=== PATIENT | female | born 1990 | race Caucasian/White ===

== ENCOUNTER 2024-05-25 08:12 | Emergency (ER) | payer BC, SELFPAY ==
--- NOTE | 2024-05-25 08:22 | XR_ITS ---
Examination: Complete OB ultrasound, less than 14 weeks, transabdominal Date and time of exam: May 25, 2024 0835 hours INDICATIONS: Vaginal bleeding beginning one week ago Technique: Obstetrical ultrasound images less than 14 weeks performed via transabdominal imaging Findings: A normal shaped single intrauterine gestation is present in the uterus. CRL 2.7 cm corresponds to 9 weeks 3 days gestational age Posterior subchorionic hemorrhage 2.2 x 0.6 x 2.3 cm Posterior uterine fibroid degeneration 2.6 x 2.1 x 2.5 cm Ultrasonographic survey of visible and placental structures unremarkable. Amniotic fluid volume appears appropriate for this estimated gestational age. Right ovary 3.9 cm arterial flow 3.5 cm corpus luteum cyst, 15 mm follicular cyst Left ovary 3.6 cm arterial flow IMPRESSION: Viable intrauterine gestation 9 weeks 3 days Recommend short-term follow-up transvaginal pelvic sonography given the subchorionic hemorrhage.
--- NOTE | 2024-05-25 08:22 | PD.EDPREG ---
ED OB Contraction Preg RMI/HPI General Chief complaint: Abdominal Pain Stated complaint: SHARP LUQ ABD PAIN, LOWER ABD CRAMP, PREG 2MO Time Seen by Provider: 05/25/24 08:23 Source: patient Arrival date/time: 05/25/24 08:12 34-year-old female with no known medical history presents to the emergency room with a chief complaint of lower abdominal cramping, vaginal spotting and left upper quadrant abdominal pain x 3 days. Patient is currently 8 weeks . She is a (had twins). Patient denies any dysuria. Mode of arrival: ambulatory Limitations: no limitations Related Data Home Medications ?Medication ?Instructions ?Recorded ?Confirmed etonogestrel 0.12 mg-ethinyl 1 vag ring QMONTH 08/29/23 08/29/23 estradiol 0.015 mg/24 hr vaginal ring tretinoin 0.05 % topical cream 1 applic topical DAILY 08/29/23 08/29/23 Allergies Allergy/AdvReac Type Severity Reaction Status Date / Time tramadol Allergy Intermediate Rash Verified 05/25/24 08:16 Review of Systems Review of Systems Systems Reviewed: All systems reviewed, normal except as documented Constitutional Constitutional: Reports system reviewed and no additional complaints, except as documented, Denies fatigue, Denies fever(s), Denies headache(s) and Denies weakness Eyes Eyes: Reports system reviewed and no additional complaints, except as documented, Denies blurry vision and Denies change in vision ENT Ears, Nose, Mouth, and Throat: Reports system reviewed and no additional complaints, except as documented, Denies otalgia, Denies headache(s), Denies nasal congestion, Denies throat swelling and Denies vertigo Cardiovascular Cardiovascular: Reports system reviewed and no additional complaints, except as documented, Denies chest pain, Denies dyspnea and Denies dyspnea on exertion Respiratory Respiratory: Reports system reviewed and no additional complaints, except as documented, Denies chest congestion, Denies cough, Denies dyspnea, Denies dyspnea on exertion and Denies wheezing Gastrointestinal Gastrointestinal: Reports system reviewed and no additional complaints, except as documented, Denies abdominal pain, Reports cramping, Denies nausea and Denies vomiting Genitourinary Genitourinary: Reports system reviewed and no additional complaints, except as documented, Reports abnormal vaginal bleeding and Reports pelvic pain Musculoskeletal Musculoskeletal: Reports system reviewed and no additional complaints, except as documented and Denies back pain Integumentary/Breasts Skin/Breast: Reports system reviewed and no additional complaints, except as documented and Denies wounds Neurologic Neurologic: Reports system reviewed and no additional complaints, except as documented, Denies confusion, Denies headache(s), Denies lack of coordination, Denies vertigo and Denies weakness Psychiatric Psychiatric: Reports system reviewed and no additional complaints, except as documented, Denies anxiety, Denies confusion, Denies depression, Denies paranoia, Denies suicidal ideation and Denies tactile hallucinations Endocrine Endocrine: Reports system reviewed and no additional complaints, except as documented and Denies fatigue Hematologic/Lymphatic Hematologic/Lymphatic: Reports system reviewed and no additional complaints, except as documented and Denies lymphadenopathy Allergic/Immunologic Allergic/Immunologic: Reports system reviewed and no additional complaints, except as documented, Denies throat swelling, Denies urticaria and Denies wheezing Past Medical History Past Medical History NEUROLOGIC: Positive Neurological Disorders and Migraine; Negative Seizures CARDIAC: Positive Cardiac Disorders and Valvular Heart Disease ( LEAKY VALVE ); Negative Congestive Heart Failure RESPIRATORY: Negative Chronic Obstructive Pulmonary Disease (COPD) GASTROINTESTINAL: Positive Gastrointestinal Disorders (OCCASSIONAL RECTAL BLEEDING) and Hemorrhoids GENITOURINARY: Negative Genitourinary Disorders or Renal Disease REPRODUCTIVE: Positive Previous Pregnancies MUSCULOSKELETAL: Positive Musculoskeletal Disorders (TENDONITIS) ENDOCRINE: Positive Endocrine Disorders (HYPERHIDROSIS); Negative Diabetes Mellitus Type 1 or Diabetes Mellitus Type 2 OTHER HISTORY: Negative Blood Transfusions, Anesthesia Reactions or Cancer Social History SMOKING STATUS: Never smoker SUBSTANCE USE: does not use ED Exam General Limitations: Present no limitations General appearance: Present alert and in no apparent distress Head Head exam: Present atraumatic Eye Eye exam: Present normal appearance, PERRL and EOMI ENT ENT exam: Present normal exam, normal oropharynx and mucous membranes moist Neck Neck exam: Present normal inspection, full ROM and trachea midline Chest Chest inspection: Present normal inspection and symmetric chest wall rise Respiratory Respiratory exam: Present normal lung sounds bilaterally Cardiovascular Cardiovascular exam: Present regular rate, normal rhythm and normal heart sounds Abdominal Exam Abdominal exam: Present soft, tenderness and normal bowel sounds; Absent distention, guarding, rebound or rigidity Abdominal tenderness: Present suprapubic and mild Extremities Exam Extremities exam: Present normal inspection and full ROM Back Exam Back exam: Present normal inspection and full ROM Neurological Exam Neurological exam: Present alert, oriented X3 and CN II-XII intact Psychiatric Psychiatric exam: Present normal affect and normal mood Skin Skin exam: Present warm, dry, intact and normal color Course Quality Measures none Orders Category Date Time Status US OB <= 14 weeks fetus Stat Exams 05/25/24 08:22 Completed ABO/RH Type Stat Lab 05/25/24 09:05 Completed Beta HCG,Quantitative Stat Lab 05/25/24 09:05 Completed CBC Stat Lab 05/25/24 09:05 Completed CMP [Comprehensive Metabolic Panel] Stat Lab 05/25/24 09:05 Completed UA [Urinalysis] Stat Lab 05/25/24 10:05 Completed Vital Signs Vital signs: Vital Signs Temperature 98.3 F 05/25/24 08:39 Pulse Rate 100 05/25/24 08:39 Respiratory Rate 17 05/25/24 08:39 Blood Pressure 118/80 05/25/24 08:39 Pulse Oximetry (%) 98 05/25/24 08:39 Oxygen Delivery Method Room Air 05/25/24 08:39 O2 saturation 98% within normal limits OB/Uterine Contractions MDM Narrative MDM Narrative:: 34-year-old female with no known medical history presents to the emergency room with a chief complaint of lower abdominal cramping, vaginal spotting and left upper quadrant abdominal pain x 3 days. Patient is currently 8 weeks . She is a (had twins). Patient denies any dysuria. Patient is hemodynamically stable and in no apparent distress. Patient states she has left upper quadrant abdominal cramping and tenderness with palpation. Ultrasound OB shows a subchorionic bleed. There is a viable intrauterine gestation at 9 weeks and 3 days. hCG levels are [phone] Patient was educated that it is very important to follow-up with CONDITIONING MACHINE OPERATOR in the next 24 to 48 hours. Our radiologist recommends short-term follow-up for the subchorionic bleed. Urinalysis was negative CBC and CMP were negative for any acute findings. Patient was discharged and educated to follow-up with primary care provider in the next 24 to 48 hours and return to the emergency room for any evidence of worsening signs or symptoms Patient data External records reviewed:: [facility] previous records Clinical information provided by:: parent Social determinants that could affect healthcare access:: none Patient has the following chronic illnesses:: No chronic illness How is presenting disease/condition affected by chronic disease/condition?: no chronic disease Evaluation data The following diagnostics were reviewed and interpreted by me:: lab results and radiology exam(s) Lab and/or radiology exams considered but not ordered:: Labs and radiology exams considered and ordered Interpretation Summary: Ultrasound OB-Findings: A normal shaped single intrauterine gestation is present in the uterus. CRL 2.7 cm corresponds to 9 weeks 3 days gestational age Posterior subchorionic hemorrhage 2.2 x 0.6 x 2.3 cm Posterior uterine fibroid degeneration 2.6 x 2.1 x 2.5 cm Ultrasonographic survey of visible and placental structures unremarkable. Amniotic fluid volume appears appropriate for this estimated gestational age. Right ovary 3.9 cm arterial flow 3.5 cm corpus luteum cyst, 15 mm follicular cyst Left ovary 3.6 cm arterial flow IMPRESSION: Viable intrauterine gestation 9 weeks 3 days Recommend short-term follow-up transvaginal pelvic sonography given the subchorionic hemorrhage. Medications / Prescriptions Medications or Prescriptions considered but not ordered:: Medication given Medication administrations:: Medication given Consultations Consultation(s) initiated? (list below): No Diagnosis OB Contractions Differential Diagnosis: other (Spontaneous /vaginal bleed/threatened /subchorionic bleed) Most likely diagnosis given after review of the tests above:: Subchorionic hemorrhage Admission Indicated Admission indicated?: not indicated Explain why admission is indicated or not indicated:: N/A Admission Request Was there a request for admission?: No Disposition Plan Disposition Plan: Discharge Discharge Attestation Discharge Attestation: The patient and all family members were given an opportunity to ask questions and understood the discharge instructions. Discharge instructions specifically effects, indications for sooner follow up or return to the emergency department, and the expected course of current diagnosis. Patient condition: Stable Discharge Plan Plan Patient Disposition: HOME (Self Care) Disposition Comment: Stable Prescriptions/Referrals Prescriptions/Med Rec: No Action tretinoin 0.05 % cream 1 applic TOPICAL DAILY Patient Comments: APPLY TO AFFECTED AREA EVERY DAY etonogestrel-ethinyl estradiol 0.12-0.015 mg/24 hr ring 1 vag ring QMONTH Patient Comments: INSERT 1 RING INTO VAGINA ONCE A MONTH Referrals: Ricky Youssef [Primary Care Provider] - In 1 week Problem List Clinical Impression: Subchorionic hemorrhage Patient/Caregiver Discharge Instructions Education Materials: Bleeding During Early Additional Instructions: Please follow-up with your CONDITIONING MACHINE OPERATOR in the next 24 to 48 hours. Your is in good standing at 9 weeks and 3 days. Your hCG levels are 145,423. You have a subchorionic bleed which is a collection of blood between the placenta and the uterine wall. Our radiologist recommends short-term follow-up to monitor this subchorionic hemorrhage. Please follow-up with your CONDITIONING MACHINE OPERATOR as soon as possible. For any evidence of worsening signs or symptoms return to the emergency room immediately Print Language: Cymraes Stand Alone Forms: Linda Award Info., Work/School Release, Patient Portal Info Letter PA/BERRY GROWER Supervising Physician MARVIN/ELIE Supervising Physician: Dr. Anthony
[2024-05-25 08:39] VITALS: BP 118/80; PULSE 100; RESP 17; TEMP 36.8; O2SAT 98
[2024-05-25 09:44] LABS: Basophils % (Auto) 0 % (0-2.5); Eosinophils # (Auto) 0.2 Thou/mm3 (0.0-0.5); Eosinophils % (Auto) 4 % (0-10); Hematocrit 32.5 % (36.0-46.0); Hemoglobin 10.9 g/dL (12.0-16.0); Immature Granulocytes % (Auto) 0 % (0-0); Immature Granulocytes Auto 0.01 Thou/mm3 (0.00-0.00); Lymphocytes # (Auto) 1.5 Thou/mm3 (1.0-4.8); Lymphocytes % (Auto) 27 % (10-50); Mean Corpuscular HGB Conc 33.5 g/dl (31.0-37.0); Mean Corpuscular Hemoglobin 31.1 pg (25.0-35.0); Mean Corpuscular Volume 93 fL (80-100); Monocytes # (Auto) 0.7 Thou/mm3 (0.0-0.8); Monocytes % (Auto) 12 % (0-12); Neutrophils # (Auto) 3.2 Thou/mm3 (1.8-7.7); Neutrophils % (Auto) 57 % (37-80); Nucleated Red Blood Cell % 0 /100 WBC (0); Platelet Count 224 Thou/mm3 (140-440); RDW Standard Deviation 40.8 fL (36.4-46.3); White Blood Count 5.6 Thou/mm3 (3.6-11.0)
[2024-05-25 10:01] LABS: Alanine Aminotransferase 30 U/L (10-49); Albumin, Serum 4.1 gm/dL (3.5-5.0); Albumin/Globulin Ratio 1.5 (1.2-2.2); Alkaline Phosphatase 50 U/L (46-116); Anion Gap 8 (7-16); Aspartate Amino Transferase 17 U/L (0-34); BUN/Creatinine Ratio 13 Ratio (12-20); Bilirubin,Total 0.3 mg/dL (0.3-1.2); Blood Urea Nitrogen 8 mg/dL (9-23); Calcium 8.8 mg/dL (8.3-10.6); Calcium (Corrected) 8.8 mg/dL (8.5-10.1); Chloride 103 mMol/L (98-107); Creatinine (Component) 0.6 mg/dL (0.6-1.3); Globulin 2.7 gm/dL (2.3-3.5); Glucose 93 mg/dL (74-106); Osmolality,Calculated 268 (275-295); Potassium 3.8 mMol/L (3.4-5.1); Sodium 135 mMol/L (136-145); Total Protein 6.8 gm/dL (5.7-8.2); eGFR > 60 See Note
[2024-05-25 10:13] LABS: Collection Type, Urine Clean Catch
[2024-05-25 10:17] LABS: Bilirubin,Urine Negative (Negative); Blood,Urine Negative (Negative); Clarity,Urine Clear (Clear/Hazy); Color,Urine Lt Yellow (Lt Yel-Yel); Glucose, Urine Negative (Negative); Ketones,Urine Negative (Negative); Leukocyte Esterase,Urine Negative (Negative); Nitrite,Urine Negative (Negative); PH,Urine 6.5 (5.0-7.0); Protein,Urine Negative (Neg - Trace); Urobilinogen,Urine 0.2 mg/dL (0.0-1.0)
[2024-05-25 10:40] LABS: Squamous Epithelial Cell,Urine 15 /hpf (0-5)
[2024-05-25 10:44] LABS: RBC,Urine 1 /hpf (0-3); WBC,Urine 2 /hpf (0-5)
[2024-05-25 10:45] LABS: Bacteria,Urine 1+; Mucus,Urine 2+ /lpf; Transitional Epi Cells,Urine 1 /hpf (0-5)
[2024-05-25 11:11] LABS: Beta HCG,Quantitative 145423 mIU/mL (<5.0)
== END 2024-05-26 06:22 | disposition home or self-care (01) ==
PROVIDERS: Nurse Practitioner Family; Emergency Provider Emergency Medicine; PCP Obstetrics & Gynecology
DX: O20.8 Other hemorrhage in early pregnancy (principal); Z3A.09 9 weeks gestation of pregnancy
CPT/HCPCS: 36415; 76801; 80053; 81001; 84702; 85025; 86900; 86901; 99284

== ENCOUNTER 2024-10-22 09:06 | Outpatient (CLI) | payer BC, SELFPAY ==
[2024-10-22] VITALS (10 sets, daily range): BP systolic 111–119; BP diastolic 58–59; PULSE 90–106; RESP 18–99; TEMP 36.6; O2SAT 98–99; BMI 31.3
== END 2024-10-22 09:55 | disposition home or self-care (01) ==
LOC: S4S1 09:07 → S4SX 09:08
PROVIDERS: Referring Provider Obstetrics & Gynecology; Visit Provider Obstetrics & Gynecology
DX: O36.8130 Decreased fetal movements, third trimester, not applicable or unspecified (principal); Z3A.30 30 weeks gestation of pregnancy